=== PATIENT | female | born 1975 | race African-American/Black ===

== ENCOUNTER 2016-10-13 14:58 | Emergency (ER) | payer BC ==
[2016-10-13] MEDS ORDERED: Labetalol IV* 5 MG/ML 20 ML VIAL IV PUSH ONE (16:34)
[2016-10-13 16:44] LABS: Hematocrit 44 % (35-47); Hemoglobin 14.1 g/dl (12.0-16.0); Mean Corpuscular HGB Conc 32 g/dl (31-36); Mean Corpuscular Hemoglobin 27 pg (27-31); Mean Corpuscular Volume 84 fL (80-97); Mean Platelet Volume 9 um3 (7.4-10.4); Red Blood Count 5.21 10^6/ul (4.0-5.4); Red Cell Distribution Width 14 % (10.5-15); White Blood Count 5.7 10^3/ul (3.5-10.8)
[2016-10-13 16:56] LABS: ALT 12 U/L (7-52); AST 17 U/L (13-39); Albumin 4.3 g/dL (3.2-5.2); Alkaline Phosphatase 59 U/L (34-104); Anion Gap 3 mmol/L (2-11); BUN/Creatinine Ratio 10.1 (8-20); Blood Urea Nitrogen 9 mg/dL (6-24); CO2 Carbon Dioxide 29 mmol/L (22-32); Calcium 9.5 mg/dL (8.6-10.3); Chloride 104 mmol/L (101-111); Cholesterol 176 mg/dL; EGFR African American 89.9 (>60); EGFR Non-African American 69.9 (>60); Glucose 87 mg/dL (70-100); HDL Cholesterol 57.8 mg/dL; LDL Cholesterol 103 mg/dL; Sodium 136 mmol/L (133-145); Total Protein 7.3 g/dL (6.4-8.9); Triglycerides 74 mg/dL
[2016-10-13 16:59] LABS: Urine Bilirubin Negative (Negative); Urine Glucose Negative (Negative); Urine Nitrite Negative (Negative)
--- NOTE | 2016-10-13 17:00 | RAD ---
INDICATION: Headaches and visual changes COMPARISON: CTA head and neck November 03, 2015; MRI brain November 03, 2015 TECHNIQUE: Noncontrast axial source images were acquired from the skull base to the vertex. FINDINGS: Ventricles/sulci: The ventricles and cisterns are normal in size and configuration for age. Brain parenchyma: There is no focal parenchymal finding, evidence of intracranial mass, or intracranial mass effect. Intracranial hemorrhage:None. Extra-axial spaces: There are no abnormal extra axial fluid collections or evidence of extra-axial mass. Calvarium: There is no calvarial fracture or other calvarial abnormality. Scalp: There is no evidence of scalp or extracalvarial soft tissue abnormality. Paranasal sinuses/mastoid: The paranasal sinuses and mastoid air cells are clear. Other: None. IMPRESSION: NEGATIVE EXAMINATION
--- NOTE | 2016-10-13 17:14 | RAD ---
INDICATION: Hypertension, palpitations. Headache. COMPARISON: November 04, 2015 CT. TECHNIQUE: Dual energy PA and routine lateral views of the chest were obtained. REPORT: Clear lungs and pleural spaces. Negative for pneumothorax. The heart, pulmonary vasculature, and mediastinal contours are unremarkable. Unremarkable osseous structures and soft tissue contours. IMPRESSION: No evidence for acute intrathoracic disease. Negative exam.
[2016-10-13 17:15] LABS: Benzodiazepine Urine Screen None Detected (None Detect)
[2016-10-13] MEDS ORDERED: Metoclopramide IV* 5 MG/ML 2 ML VIAL IV ONE (17:54)
[2016-10-13] MEDS ORDERED: Ketorolac INJ* 30 MG/ML 1 ML VIAL IV PUSH ONE (17:54)
[2016-10-13] MEDS ORDERED: diPHENhydraMINE IV* 50 MG in NS 0.9% 50 ML* 50 ML IVPB ONE (17:54)
[2016-10-13 18:38] VITALS: BP 122/74
--- NOTE | 2016-10-13 18:45 | ED ---
Prateek Busch Alok, scribed for Danilo Soni MD on 10/13/16 at 1704 . Headache - HPI Summary HPI Summary: 41 y/o female presents to the ED with c/o head pressure and pain for the last 4 days. Pain is localized to the back of the head and is accompanied by vision loss of the left eye on and off. Currently her pain is at a 7 out of 10 in severity. Additionally pt notes left sided CP radiating down left arm yesterday which subsided since. Pt also medically controlled HTN but her BP has been high for the past few days despite medications. Her PCP instructed her to try an extra dose of HTN medication to try and lower BP but it had no affect. Pt has hx of migraines but states these symptoms are not her typical migraines. Pt denies any N/V or neck pain. Pt smokes tobacco and just ate [employer]. - History Of Current Complaint Chief Complaint: EDGeneral Stated Complaint: HIGH BLOOD PRESSURE Time Seen by Provider: 10/13/16 16:21 Hx Obtained From: Patient Hx Last Menstrual Period: just finished it Onset/Duration: Started days ago, Still Present Currently Pain Is: Current Pain Scale(0-10)= - 7 Timing: Constant Character: Throbbing Location of Headache: Occipital Associated Signs And Symptoms: Other (Noted In Comments) - Chest Pain. HTN. - Allergies/Home Medications Allergies/Adverse Reactions: Allergies Allergy/AdvReac Type Severity Reaction Status Date / Time Sulfamethoxazole Allergy Hives Verified 11/03/15 13:46 w/Trimethoprim [From Bactrim] Codeine AdvReac Vomiting Verified 11/03/15 13:46 Hydrocodone [From Vicodin] AdvReac Vomiting Verified 11/03/15 13:46 PMH/Surg Hx/FS Hx/Imm Hx Endocrine/Hematology History: Reports: Hx Thyroid Disease - FIORDALIZA'S Denies: Hx Anticoagulant Therapy, Hx Diabetes Cardiovascular History: Reports: Hx Angina, Hx Hypercholesterolemia, Hx Hypertension - ON MEDICATION FOR, Other Cardiovascular Problems/Disorders - tachycardia, valve flutter Denies: Hx Coronary Artery Disease, Hx Myocardial Infarction, Hx Pacemaker/ ICD, Hx Valvular Heart Disease Respiratory History: Reports: Hx Asthma - exercise induced Denies: Hx Chronic Obstructive Pulmonary Disease (COPD) GI History: Reports: Hx Irritable Bowel - Fiordaliza's Denies: Hx Cirrhosis History: Denies: Hx Renal Disease Sensory History: Denies: Hx Contacts or Glasses, Hx Hearing Aid Opthamlomology History: Denies: Hx Contacts or Glasses Neurological History: Reports: Hx Migraine - 7-8/MONTH- TREATS WITH XANAX, Other Neuro Impairments/Disorders - ACUTE STRESS DISORDER Denies: Hx Dementia, Hx Seizures Psychiatric History: Denies: Hx Panic Disorder, Hx Substance Abuse - Cancer History Cancer Type, 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 Removal of scar tissue from left arm where a Norplant implant was placed. 1991, [place] Yanez [place] [facility] [place]EEP PROCEDURE-[facility] Hx Anesthesia Reactions: Yes - TUBAL-BURNING SENSATION THROUGHOUT BODY AND "WAS OUT" - Immunization History Date of Tetanus Vaccine: UNK Date of Influenza Vaccine: Fall 2011 Infectious Disease History: Denies: Hx Hepatitis, Hx Human Immunodeficiency Virus (HIV), Traveled Outside the [place] in Last 30 Days - Family History Known Family History: Positive: Other - No - Breast CA - Social History Occupation: Employed Full-time Alcohol Use: None Hx Substance Use: No Substance Use Type: Reports: None Hx Tobacco Use: Yes Smoking Status (MU): Light Every Day Tobacco Smoker Amount Used/How Often: 5-10 CIGARETTES PER DAY FOR LAST 6 MONTHS Have You Smoked in the Last Year: Yes Review of Systems Negative: Fever Positive: Blurred Vision Positive: Chest Pain, Other - HTN Negative: Shortness Of Breath Negative: Vomiting, Nausea Negative: Other - Neck Pain Positive: Headache All Other Systems Reviewed And Are Negative: Yes Physical Exam - Summary Physical Exam Summary: VITAL SIGNS: Reviewed. GENERAL: ~Patient is a well developed and nourished female who is lying comfortable in the stretcher. ~Patient is not in any acute respiratory distress. HEAD AND FACE: Normocephalic EYES: PERRLA, EOMI x 2. EARS: Hearing grossly intact. MOUTH: Oropharynx within normal limits. NECK: Supple, trachea is midline, no adenopathy, no JVD, no carotid bruit. CHEST: Symmetric, no tenderness at palpation LUNGS: Clear to auscultation bilaterally. No wheezing or crackles. CVS: Regular rate and rhythm, S1 and S2 present, no murmurs or gallops appreciated. ABDOMEN: Soft, non-tender. Bowel sounds are normal. No abdominal abnormal pulsations. EXTREMITIES: Full ROM in all major joints, no edema, no cyanosis or clubbing. NEURO: Alert and oriented x 3. No acute neurological deficits. Speech is normal and follows commands. SKIN: Dry and warm Triage Information Reviewed: Yes Vital Signs On Initial Exam: Initial Vitals Temp Pulse Resp BP Pulse Ox 97.5 F 79 16 153/93 100 10/13/16 15:03 10/13/16 15:03 10/13/16 15:03 10/13/16 15:03 10/13/16 15:03 Vital Signs Reviewed: Yes - [place] Coma Scale Coma Scale Total: 15 Diagnostics - Vital Signs Vital Signs Temp Pulse Resp BP Pulse Ox 10/13/16 16:33 99 10/13/16 16:23 98.4 F 77 18 148/105 100 10/13/16 16:00 71 99 10/13/16 15:55 67 99 10/13/16 15:03 97.5 F 79 16 153/93 100 - Laboratory Lab Results: Lab Results 10/13/16 10/13/16 Range/Units 16:20 16:20 WBC 5.7 (3.5-10.8) 10^3/ul RBC 5.21 (4.0-5.4) 10^6/ul Hgb 14.1 (12.0-16.0) g/dl Hct 44 (35-47) % MCV 84 (80-97) fL MCH 27 (27-31) pg MCHC 32 (31-36) g/dl RDW 14 (10.5-15) % Plt Count 122 L (150-450) 10^3/ul MPV 9 (7.4-10.4) um3 Neut % (Auto) 64.6 (38-83) % Lymph % (Auto) 28.6 (25-47) % Hardeman % (Auto) 5.2 (1-9) % Eos % (Auto) 1.2 (0-6) % Baso % (Auto) 0.4 (0-2) % Absolute Neuts (auto) 3.7 (1.5-7.7) 10^3/ul Absolute Lymphs (auto) 1.6 (1.0-4.8) 10^3/ul Absolute Monos (auto) 0.3 (0-0.8) 10^3/ul Absolute Eos (auto) 0.1 (0-0.6) 10^3/ul Absolute Basos (auto) 0 (0-0.2) 10^3/ul Absolute Nucleated RBC 0.01 10^3/ul Nucleated RBC % 0.1 INR (Anticoag Therapy) 0.98 (0.89-1.11) Result Diagrams: 10/13/16 16:20 10/13/16 16:20 Lab Statement: Any lab studies that have been ordered have been reviewed, and results considered in the medical decision making process. - Radiology CXR Xray Interpretation: Positive (See Comments) - IMPRESSION: No evidence for acute intrathoracic disease. Negative exam. Radiology Interpretation Completed By: Radiologist - CT Brain CT CT Interpretation: Positive (See Comments) - IMPRESSION: NEGATIVE HEAD EXAM CT Interpretation Completed By: Radiologist - EKG 1631 Cardiac Rate: NL EKG Rhythm: Sinus Rhythm - 70 bpm EKG Interpretation: No ST elevation Headache Course/Dx - Course Course Of Treatment: 41 y/o female presents to the ED with c/o head pressure and pain for the last 4 days. Pain is localized to the back of the head and is accompanied by vision loss of the left eye on and off. Currently her pain is at a 7 out of 10 in severity. Additionally pt notes left sided CP radiating down left arm yesterday which subsided since. Pt also medically controlled HTN but her BP has been high for the past few days despite medications. Her PCP instructed her to try an extra dose of HTN medication to try and lower BP but it had no affect. Pt has hx of migraines but states these symptoms are not her typical migraines. Pt denies any N/V or neck pain. Pt smokes tobacco and just ate [employer]. Assessment/Plan: Blood work wnl. UA shows no UTI. Head CT IMPRESSION: NEGATIVE EXAMINATION. CXR IMPRESSION: No evidence for acute intrathoracic disease. Negative exam. In the ED course initially she was given Labetalol 20 mg IV. Before she was given Labetalol her BP has decreased to 113/69. She continues to have a Headache but she has Hx of migraine headaches. She was given Benadryl , Reglan and Toradol. After the above medications her Headache has resolved. Patient was observed for a couple hours and her symptoms did not return. At believe taking an extra dose of Diltiazem her blood pressure improved. I discussed all the findings and test results with the patient. Patient was instructed to return to the emergency room immediately if any of the symptoms return or worsens. Plan of care was discussed with the patient and understands and agrees. All questions were answered at patient satisfaction. There were no further complaints or concerns. Lung exam before discharge: CTA B/L. Good air exchange. No wheezing or crackles heard. CVS: S1 and S2 present. No murmurs appreciated. Patient is alert and oriented x 3. Patient is hemodynamically stable. Patient will be discharged home with follow up with PCP in the next 2-3 days - Diagnoses Differential Diagnosis/HQI/PQRI: CVA, TIA, Migraine, Sinus Headache, Tension Headache Provider Diagnoses: Headache, Uncontrolled hypertension Discharge - Discharge Plan Condition: Stable Disposition: HOME Patient Education Materials: Hypertension (ED), General Headache (ED) Forms: *Work Release Referrals: Jenny Boston MD [Primary Care Provider] - The documentation as recorded by the Prateek pope Alok accurately reflects the service I personally performed and the decisions made by me, Danilo Soni MD.
== END 2016-10-13 19:02 | disposition home or self-care (01) ==
LOC: ED 14:58
DX: F17.210 Nicotine dependence, cigarettes, uncomplicated (principal); I10 Essential (primary) hypertension; R07.9 Chest pain, unspecified; M79.602 Pain in left arm; H53.8 Other visual disturbances; R51 Headache
CPT/HCPCS: 36415; 70450; 71020; 80053; 80061; 80307; 81003; 83605; 84484; 84702; 85025; 85610; 93005; 96374; 96375; 99284; J1200; J1885

== ENCOUNTER 2016-12-13 08:11 | Emergency (ER) | payer BC, OTHER ==
[2016-12-13 08:20] VITALS: BP 143/87
--- NOTE | 2016-12-13 08:40 | UC ---
Back Pain HPI - HPI Summary HPI Summary: SUDDEN ONSET OF LEFT LOW BACK PAIN 3 WEEKS AGO WILNatalie SHE WAS DOING SOME HEAVY LIFTING AT WORK. HAS BEEN USING OTC IBUPROFEN AND ICY HOT WITH NO RELIEF. EMPLOYERS ADVISED HER TO BE SEEN SINCE SHE IS NOT IMPROVING. SHE CALLED HER PCP WHO REFERRED HER HERE THEY DO NOT TAKE WORKERS COMP. HAS SOME TINGLING IN HER TOES SINCE THE INJURY. - History of Current Complaint Chief Complaint: UCBackPain Stated Complaint: BACK INJURY Time Seen by Provider: 12/13/16 08:32 Hx Obtained From: Patient Hx Last Menstrual Period: none had ablasion Onset/Duration: Sudden Onset, Lasting Weeks, Still Present Timing: Constant Severity Initially: Moderate Severity Currently: Moderate Pain Intensity: 7 Pain Scale Used: 0-10 Numeric Back Pain: Is Discrete @ - LEFT LOW Aggravating: Movement Alleviating: Rest, Position Associated Signs And Symptoms: Positive: Tingling - Allergies/Home Medications Allergies/Adverse Reactions: Allergies Allergy/AdvReac Type Severity Reaction Status Date / Time Sulfamethoxazole Allergy Hives Verified 12/13/16 08:27 w/Trimethoprim [From Bactrim] Codeine AdvReac Vomiting Verified 12/13/16 08:27 Hydrocodone [From Vicodin] AdvReac Vomiting Verified 12/13/16 08:27 Home Medications: Home Medications Cholecalciferol TAB* [Vitamin D TAB*] 3,000 unit PO DAILY 12/13/16 [History Confirmed 12/13/16] Menthol (Topical Analgesic) [Icy Hot Patch] 12/13/16 [History] PMH/Surg Hx/FS Hx/Imm Hx Endocrine History: Thyroid Disease - ZKAIYA'S Cardiovascular History: Hypertension Respiratory History: Asthma Other History Of: Negative For: Anticoagulant Therapy - Surgical History Surgical History: Yes Surgery Procedure, Year, and Place: tubal ligation [place] [place] uterine ablasion. Removal of scar tissue from left arm where a Norplant implant was placed. 1991, Dr Yanez [place] [facility] [place],. [place] PROCEDURE-[facility] - Family History Known Family History: Positive: Hypertension, Other - No - Breast CA Family History: DAD - HEROIN, MOM ALCOHOLIC - Social History Alcohol Use: None Substance Use Type: None Smoking Status (MU): Former Smoker Amount Used/How Often: 5-10 CIGARETTES PER DAY FOR LAST 6 MONTHS Have You Smoked in the Last Year: Yes When Did the Patient Quit Smoking/Using Tobacco: quit November 2016 Household Exposure Type: Cigarettes - Immunization History Most Recent Influenza Vaccination: 2014 Most Recent Tetanus Shot: 2012 Most Recent Pneumonia Vaccination: never Review of Systems Constitutional: Negative Respiratory: Negative Cardiovascular: Negative Gastrointestinal: Negative Musculoskeletal: Arthralgia, Decreased ROM, Myalgia All Other Systems Reviewed And Are Negative: Yes Physical Exam Triage Information Reviewed: Yes Appearance: Well-Appearing, Well-Nourished, Pain Distress - MODERATE. WORSE WHEN SHE MOVES Vital Signs: Initial Vital Signs Temp 98.8 F 12/13/16 08:19 Pulse 82 12/13/16 08:19 Resp 18 12/13/16 08:19 BP 143/87 12/13/16 08:19 Pulse Ox 100 12/13/16 08:19 Vital Signs Reviewed: Yes Eyes: Positive: Conjunctiva Clear ENT: Positive: Hearing grossly normal Neck: Positive: Supple Respiratory: Positive: No respiratory distress, No accessory muscle use Cardiovascular: Positive: Pulses Normal Abdomen Description: Positive: Soft Musculoskeletal: Positive: No Edema, ROM Limited @ - BACK, Other: - GAIT AFFECTED. Neurological: Positive: Alert, Other: - NEG STRAIGHT LEG RAISE Psychological: Positive: Age Appropriate Behavior Skin: Negative: rashes Diagnostics - Radiology LUMBARSACRAL XRAYS Xray Interpretation: No Acute Changes Radiology Interpretation Completed By: Radiologist Back Pain Course/Dx - Differential Dx/Diagnosis Provider Diagnoses: ACUTE LOW BACK STRAIN Discharge - Discharge Plan Condition: Stable Disposition: HOME Prescriptions: Cyclobenzaprine TAB* [Flexeril TAB*] 10 mg PO BID PRN #30 tab PRN Reason: Pain Naproxen [Naproxen EC] 500 mg PO BID PRN #30 tab PRN Reason: Pain predniSONE TAB* [Deltasone TAB*] 40 mg PO DAILY #10 tab Patient Education Materials: Low Back Strain (ED) Forms: *Work Release Referrals: Jenny Boston MD [Primary Care Provider] - If Needed Nery Cordova MD [Medical Doctor] - If Needed Additional Instructions: XRAY UNREMARKABLE TODAY. YOU MAY BENEFIT FROM AN MRI IF YOUR SYMPTOMS DO NOT IMPROVE OVER THE NEXT 1-2 WEEKS. FOLLOW-UP ORTHO OR SPINE CENTER IF NEEDED. BE SURE TO GO THROUGH SLOW RANGE OF MOTION AND STRETCHING EXERCISES DAILY YOU ARE ABLE TO PREVENT STIFFENING UP AND MAKING THE DISCOMFORT WORSE. [facility] [address] [place] [address]
--- NOTE | 2016-12-13 09:15 | RAD ---
INDICATION: Back pain after heavy lifting. COMPARISON: CT abdomen pelvis dated February 05, 2014 TECHNIQUE: 5 views of the lumbar spine were obtained. FINDINGS: The vertebra are in normal alignment. No fracture is seen. Disc spaces appear maintained. . IMPRESSION: No evidence of fracture or subluxation.
== END 2016-12-13 09:44 | disposition home or self-care (01) ==
LOC: UCEAST 08:11
DX: S39.012A Strain of muscle, fascia and tendon of lower back, initial encounter (principal); X50.0XXA Overexertion from strenuous movement or load, initial encounter; Y93.89 Activity, other specified; Y92.69 Other specified industrial and construction area as the place of occurrence of the external cause; Y99.9 Unspecified external cause status; I10 Essential (primary) hypertension; E06.3 Autoimmune thyroiditis; J45.909 Unspecified asthma, uncomplicated; Z87.891 Personal history of nicotine dependence
CPT/HCPCS: 72110; 99212; G0463

== ENCOUNTER 2019-01-30 17:22 | Emergency (ER) | payer BC, OTHER ==
[2019-01-30] MEDS ORDERED: oxyCODONE TAB* 5 MG TAB PO ONE ×2 (17:38→19:47)
[2019-01-30] MEDS ORDERED: Ondansetron ODT TAB* 4 MG SL ONE (17:39)
[2019-01-30] MEDS ORDERED: Ondansetron ODT TAB* 4 MG ONE (17:48)
--- NOTE | 2019-01-30 17:49 | ED ---
Adult Trauma - HPI Summary HPI Summary: The patient is a 43 y/o F presenting to [facility] accompanied by mother with a chief complaint of sudden onset left-sided trauma extending from the trunk to the leg starting [employer] s/p falling down the stairs. She reports that she had started to walk down the stairs after taking a shower, and she slipped on the edge of the first step, causing her to hit her left elbow on the stairs and she continued to slide down the stairs on her back. There is now a swollen lump on her lower back. She was unable to stand up on her own, but she was able to ambulate in the ED. Her left leg also became numb while on her way here. She has not taken anything for pain, but the pain is rated 8/10 in severity. Movement aggravates the pain. Hx of thyroid disease, angina, HLD, HTN ( Lisinopril, Diltiazem), tachycardia, Hashimotos. Former smoker, no EtOH, no substance use. - History of Current Complaint Chief Complaint: EDFall Stated Complaint: FELL DOWN 14 STAIRS PER PT Time Seen by Provider: 01/30/19 17:33 Hx Obtained From: Patient Hx Last Menstrual Period: none had ablasion Mechanism of Injury: Fall - fell down a flight of stairs on her back and left side Ambulatory at the Scene: No - unable to get up by herself Onset of Pain: Immediate Onset Severity: Severe Current Severity: Severe Pain Intensity: 8 Pain Scale Used: 0-10 Numeric Location: Other - left-side of body especially the left elbow and left low back Aggravating Factor(s): Movement Alleviating Factor(s): Nothing Associated Signs & Symptoms: Positive: Numbness/Weakness - in the LLE - Allergy/Home Medications Allergies/Adverse Reactions: Allergies Allergy/AdvReac Type Severity Reaction Status Date / Time codeine Allergy Vomiting Verified 01/30/19 17:24 hydrocodone [From Vicodin] Allergy Vomiting Verified 01/30/19 17:24 sulfamethoxazole AdvReac Hives Verified 01/30/19 17:24 [From Bactrim] trimethoprim [From Bactrim] AdvReac Hives Verified 01/30/19 17:24 Home Medications: Home Medications Folic Acid TAB* [Folvite TAB*] 1 mg PO DAILY 01/30/19 [History Confirmed ] Lisinopril TAB* [Prinivil TAB 5 MG*] 5 mg PO DAILY 01/30/19 [History Confirmed 01/30/19] Pregabalin [Lyrica] 75 mg PO DAILY 01/30/19 [History Confirmed 01/30/19] PMH/Surg Hx/FS Hx/Imm Hx Endocrine/Hematology History: Reports: Hx Thyroid Disease - FIORDALIZA'S Denies: Hx Anticoagulant Therapy, Hx Diabetes Cardiovascular History: Reports: Hx Angina, Hx Hypercholesterolemia, Hx Hypertension, Other Cardiovascular Problems/Disorders - tachycardia, valve flutter Denies: Hx Coronary Artery Disease, Hx Myocardial Infarction, Hx Pacemaker/ ICD, Hx Valvular Heart Disease Respiratory History: Reports: Hx Asthma - exercise induced Denies: Hx Chronic Obstructive Pulmonary Disease (COPD) GI History: Reports: Hx Irritable Bowel - Fiordaliza's Denies: Hx Cirrhosis History: Denies: Hx Renal Disease Sensory History: Denies: Hx Contacts or Glasses, Hx Hearing Aid Opthamlomology History: Denies: Hx Contacts or Glasses Neurological History: Reports: Hx Migraine - 7-8/MONTH- TREATS WITH XANAX, Other Neuro Impairments/Disorders - ACUTE STRESS DISORDER Denies: Hx Dementia, Hx Seizures Psychiatric History: Denies: Hx Panic Disorder, Hx Substance Abuse - Cancer History Cancer Type, 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 Removal of scar tissue from left arm where a Norplant implant was placed. 1991, Dr Yanez at [facility],. LEEP PROCEDURE-[facility] Hx Anesthesia Reactions: Yes - TUBAL-BURNING SENSATION THROUGHOUT BODY AND "WAS OUT" - Immunization History Date of Tetanus Vaccine: UNK Date of Influenza Vaccine: Fall 2011 Immunizations Up to Date: Yes Infectious Disease History: No Infectious Disease History: Denies: Hx Hepatitis, Hx Human Immunodeficiency Virus (HIV), Traveled Outside the [place] in Last 30 Days - Family History Known Family History: Positive: Hypertension, Other - No - Breast CA Family History: DAD - HEROIN, MOM ALCOHOLIC - Social History Alcohol Use: None Hx Substance Use: No Substance Use Type: Reports: None Hx Tobacco Use: Yes Smoking Status (MU): Former Smoker Amount Used/How Often: 5-10 CIGARETTES PER DAY FOR LAST 6 MONTHS Have You Smoked in the Last Year: Yes Review of Systems Positive: Other - pain in low back on left side with swelling, left elbow pain Positive: Numbness - in left leg All Other Systems Reviewed And Are Negative: Yes Physical Exam - Summary Physical Exam Summary: Appearance: Well-appearing, Well-nourished, lying in bed in obvious discomfort Skin: Warm, dry, no obvious rash Eyes: sclera anicteric, no conjunctival pallor ENT: mucous membranes moist, pharynx appears normal, no sign of head injury Neck: Supple, nontender Respiratory: Clear to auscultation, no signs of respiratory distress Cardiovascular: Normal S1, S2. No murmurs. Normal distal pulses in tibial and radial bilaterally. Abdomen: Soft, nontender, normal active bowel sounds present Musculoskeletal: Tenderness on left lower back without any surface sings of injury, Left elbow is normal with FROM and no focal tenderness, Able to move lower extremities without apparent difficulty Neurological: A&Ox3, awake and alert, mentation is normal, speech is fluent and appropriate Psychiatric: affect is normal, does not appear anxious or depressed Triage Information Reviewed: Yes Vital Signs On Initial Exam: Initial Vitals Temp Pulse Resp BP Pulse Ox 98.0 F 106 20 158/109 99 01/30/19 17:24 01/30/19 17:24 01/30/19 17:24 01/30/19 17:24 01/30/19 17:24 Vital Signs Reviewed: Yes Diagnostics - Vital Signs Vital Signs Temp Pulse Resp BP Pulse Ox 01/30/19 17:24 98.0 F 106 20 158/109 99 - Laboratory Lab Statement: Any lab studies that have been ordered have been reviewed, and results considered in the medical decision making process. - Radiology L Elbow XR Radiology Interpretation Completed By: ED Physician Summary of Radiographic Findings: No evidence for fracture. ED physician has reviewed this radiology report. Pending official report. L Hip/Pelvis XR Radiology Interpretation Completed By: ED Physician Summary of Radiographic Findings: No evidence for fracture. ED physician has reviewed this radiology report. Pending official report. Lumbar Spine XR Radiology Interpretation Completed By: Radiologist Summary of Radiographic Findings: No evidence for fracture. ED physician has reviewed this radiology report. Pending official report. Re-Evaluation - Re-Evaluation First Eval Re-Evaluation Time: 19:40 Comment: I discussed results and dishcarge home with the patient. Adult Trauma Course/Dx - Course Course Of Treatment: The patient is a 43 y/o F presenting to [facility] accompanied by mother with a chief complaint of sudden onset left-sided trauma extending from the trunk to the leg starting [employer] s/p falling down the stairs, causing her to sustain pain in the left elbow and left low back where there is a swollen lump, and she had an episode of left leg numbness on her way here. She had difficulty standing on her own, but she had help from her family to ambulate. Upon physical exam, the patient exhibits tenderness on left lower back without any surface sings of injury, left elbow is normal with FROM and no focal tenderness, and she is able to move lower extremities without apparent difficulty. In the ED course, the patient was administered Oxycodone and Zofran. Per ED physician read, L Elbow XR, L Hip/Pelvis XR, and Lumbar Spine XR are negative for fracture, pending official read. The patient will be discharged home with dx of back contusion. She agrees with this plan. - Diagnoses Provider Diagnoses: Contusion of back Discharge - Sign-Out/Discharge Documenting (check all that apply): Patient Departure - Patient will be discharged home. Patient Received Moderate/Deep Sedation with Procedure: No - Discharge Plan Condition: Good Disposition: HOME Prescriptions: Ondansetron ODT TAB* [Zofran 4 MG Odt TAB*] 8 mg PO Q6H PRN #12 tab.odt PRN Reason: Nausea Oxycodone TAB(NF) [Oxycodone HCl 10 MG] 10 mg PO Q6H PRN #12 tab MDD 4 PRN Reason: Pain - Severe Patient Education Materials: Contusion in Adults (ED) Forms: *Work Release Referrals: Yahir Henley MD [Primary Care Provider] - 4 Days (if not improving) - Billing Disposition and Condition Condition: GOOD Disposition: Home - Attestation Statements Document Initiated by Sofy: Yes Documenting Scribe: Mony Eli Provider For Whom Sofy is Documenting (Include Credential): Dr. Pacheco Sharif MD Scribe Attestation: Mony Busch scribed for Dr. Pacheco Sharif MD on 01/31/19 at 1236. Scribe Documentation Reviewed: Yes Provider Attestation: The documentation as recorded by the Mony pope accurately reflects the service I personally performed and the decisions made by me, Dr. Pacheco Sharif MD Status of Sofy Document: Viewed
[2019-01-30 20:16] VITALS: BP 122/78
== END 2019-01-30 20:15 | disposition home or self-care (01) ==
LOC: ED 17:22
DX: S30.0XXA Contusion of lower back and pelvis, initial encounter (principal); W10.9XXA Fall (on) (from) unspecified stairs and steps, initial encounter; Y92.009 Unspecified place in unspecified non-institutional (private) residence as the place of occurrence of the external cause; E07.9 Disorder of thyroid, unspecified; I20.9 Angina pectoris, unspecified; E78.00 Pure hypercholesterolemia, unspecified; I10 Essential (primary) hypertension; J45.909 Unspecified asthma, uncomplicated; Z88.1 Allergy status to other antibiotic agents; Z88.5 Allergy status to narcotic agent; Z88.2 Allergy status to sulfonamides; Z79.899 Other long term (current) drug therapy; Z87.891 Personal history of nicotine dependence
CPT/HCPCS: 72100; 99283; A9270-GY

== ENCOUNTER 2019-08-13 05:43 | Observation (INO) | payer BC ==
[~2019-08-13 05:43] MED LIST: Buffered Lidocaine 1% SYRIN* 1 ML/SYRINGE INTRADERM ONE
[2019-08-13] MEDS ORDERED: Lactated Ringers 1000 ML Bag* 1,000 ML IV SCH ×2 (06:00→10:00)
[2019-08-13] MEDS ORDERED: Famotidine IV* 10 MG/ML 2 ML (20 mg) IV ONE (06:00)
[2019-08-13] MEDS ORDERED: Dexamethasone IV* 4 MG/ML 1 ML (4 MG) IV SLOW PU ONE (06:00)
[2019-08-13] MEDS ORDERED: ceFAZolin 2 GM PREMIX in ORs 2 GM/50 ML BAG ONE (06:23)
[2019-08-13] MEDS ORDERED: Famotidine IV* 10 MG/ML 2 ML (20 mg) ONE (06:23)
[2019-08-13] MEDS ORDERED: Dexamethasone IV* 4 MG/ML 1 ML (4 MG) ONE (06:23)
[2019-08-13] MEDS ORDERED: Buffered Lidocaine 1% SYRIN* 1 ML/SYRINGE INTRADERM ONE (06:55)
[2019-08-13] MEDS ORDERED: Bupivacaine 0.5% W/EPI SDV* 10 ML VIAL INJ ONE (07:11)
[2019-08-13] MEDS ORDERED: Atracurium* 10 MG/ML 10 ML VIAL ONE (07:22)
[2019-08-13] MEDS ORDERED: Midazolam* 1 MG/ML 5 ML VIAL (5 MG) ONE (07:22)
[2019-08-13] MEDS ORDERED: fentaNYL* 50 MCG/ML 5 ML VIAL (250 MCG VIAL) ONE (07:22)
[2019-08-13] MEDS ORDERED: Propofol* 10 MG/ML 20 ML BTL ONE (07:23)
[2019-08-13] MEDS ORDERED: Lidocaine 2% PF * 5 ML VIAL ONE (07:23)
[2019-08-13] MEDS ORDERED: Ondansetron INJ* 2 MG/ML VIAL ONE ×2 (07:23→10:13)
[2019-08-13] MEDS ORDERED: HYDROmorphone INJ1* 1 MG/ML SYRINGE IV PRN (08:02)
[2019-08-13] MEDS ORDERED: Ondansetron INJ* 2 MG/ML VIAL IV PRN ×2 (08:02→09:44)
[2019-08-13] MEDS ORDERED: Scopolamine 1.5 mg* PATCH TRANSDERM PRN (08:02)
[2019-08-13] MEDS ORDERED: DiMENhydriNATE IV* 50 MG/ML VIAL IV PUSH PRN (08:02)
[2019-08-13] MEDS ORDERED: Naloxone* 0.4 MG/ML 1 ML VIAL IV PRN (08:02)
[2019-08-13] MEDS ORDERED: fentaNYL* 50 MCG/ML 2 ML VIAL (100 MCG VIAL) ONE ×2 (09:53→10:13)
[2019-08-13] MEDS ORDERED: Ketorolac INJ* 30 MG/ML 1 ML VIAL ONE (09:54)
[2019-08-13] MEDS: fentaNYL* 50 MCG/ML 2 ML VIAL (100 MCG VIAL) IV PRN ×4 (09:55→10:25)
[2019-08-13] MEDS: Ketorolac INJ* 30 MG/ML 1 ML VIAL IV PRN ×3 (09:55→20:12)
[2019-08-13] MEDS: Acetaminophen TAB* 325 MG PO PRN (12:50)
[2019-08-13] MEDS ORDERED: Lisinopril TAB* 5 MG PO ONE (17:30)
[2019-08-13] MEDS ORDERED: Docusate CAP* 100 MG PO PRN (18:56)
[2019-08-13] MEDS ORDERED: Simethicone TAB* 80 MG TAB.CHEW PO PRN (18:57)
[2019-08-13] MEDS ORDERED: Topiramate TAB(*) 25 MG PO SCH (21:00)
[2019-08-14] MEDS: Ketorolac INJ* 30 MG/ML 1 ML VIAL IV PRN (02:29)
[2019-08-14] MEDS ORDERED: Diltiazem TAB* 30 MG PO SCH (06:00)
[2019-08-14] MEDS ORDERED: Lisinopril TAB* 5 MG PO SCH (06:00)
[2019-08-14] MEDS ORDERED: Levothyroxine TAB* 50 MCG TAB PO SCH (06:00)
[2019-08-14] MEDS ORDERED: Ibuprofen TAB* 600 MG PO PRN (08:14)
[2019-08-14] MEDS: Acetaminophen TAB* 325 MG PO PRN (08:22)
[2019-08-14 08:37] LABS: ABS Eosinophils 0.1 10^3/ul (0-0.6); ABS Monocytes 0.5 10^3/ul (0-0.8); ABS Neutrophils 4.8 10^3/ul (1.5-7.7); Eosinophil % 0.8 %; Hematocrit 39 % (35-47); Hemoglobin 12.9 g/dL (12.0-16.0); Lymphocyte % 27.4 %; Mean Corpuscular HGB Conc 34 g/dL (31-36); Mean Corpuscular Hemoglobin 28 pg (27-31); Mean Corpuscular Volume 84 fL (80-97); Mean Platelet Volume 9.4 fL (7.4-10.4); Platelet Count 111 10^3/uL (150-450); Red Cell Distribution Width 14 % (10-15); White Blood Count 7.3 10^3/uL (3.5-10.8)
[2019-08-14 11:55] VITALS: BP 117/61
--- NOTE | 2019-08-14 12:19 | PN ---
Progress Note - Progress Note Date of Service: 08/14/19 SOAP: Subjective: [Patient is post Laparoscopic supracervical hysterectyomy. She is tolerating a regular diet, voiding, ambulating without difficulty. Pain is well controlled with PO meds.] Objective: [ Vital Signs Temp Pulse Resp BP Pulse Ox 98.1 F 59 14 117/61 100 08/14/19 11:54 08/14/19 11:54 08/14/19 11:54 08/14/19 11:54 08/14/19 11:54 Laboratory Results - last 24 hr 08/14/19 08:11 WBC 7.3 RBC 4.60 Hgb 12.9 Hct 39 MCV 84 MCH 28 MCHC 34 RDW 14 Plt Count 111 L MPV 9.4 Neut % (Auto) 65.0 Lymph % (Auto) 27.4 Oliver % (Auto) 6.6 Eos % (Auto) 0.8 Baso % (Auto) 0.2 Absolute Neuts (auto) 4.8 Absolute Lymphs (auto) 2.0 Absolute Monos (auto) 0.5 Absolute Eos (auto) 0.1 Absolute Basos (auto) 0.0 Absolute Nucleated RBC 0.0 Nucleated RBC % 0.0 Lungs CTA b/l, No CVA tenderness b/l Abdomen, soft, not tender, not distended, normal bowel sounds. Laparoscopic incisions are clean/dry/intact with no discharge, erythema or induration.] Assessment: [POD #1, Patient is stable for discharge today.] Plan: [Discharge home today, instructions reviewed with patient. She has a f/u appt at my office in 1 week.]
--- NOTE | 2019-08-15 11:00 | OP ---
OPERATIVE REPORT: DATE OF OPERATION: 08/13/19 DATE OF : 75 SURGEON: Dr. Monson. [employer] SURGEON: Dr. Jeff. ANESTHESIA: General anesthetic with endotracheal intubation. PRE-OP DIAGNOSES: Chronic pelvic pain, abnormal uterine bleeding, severe dysmenorrhea. POST-OP DIAGNOSES: Chronic pelvic pain, abnormal uterine bleeding, severe dysmenorrhea, pending path ology. OPERATIVE PROCEDURE: Laparoscopic supracervical hysterectomy. ESTIMATED BLOOD LOSS: Less than 5 cc. 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 FLUIDS: She received 1100 cc of IV crystalloid fluid. URINE OUTPUT: 400 cc of clear urine. FINDINGS: The patient was noted laparoscopically to have an enlarged lobulated uterus with normal ov jim and shortened tubal fimbria from prior tubal ligation and normal bladder and bowel and a stenot ic cervix on exam under anesthesia. DESCRIPTION OF PROCEDURE: The patient was taken to the operating room where she was identified. She was placed on operating table where general anesthetic with an endotracheal intubation was obtained without difficulty. She was then placed in the dorsal lithotomy position, prepped and draped in a no rmal sterile fashion. Attention was then brought on to the patient's perineum, the bladder was cathet erized with a Cui catheter and drained of clear urine. A side-view speculum was then inserted into the patient's vagina. The cervix was identified, grasped with a single-toothed tenaculum. An attem pt was made to introduce a ClearView uterine manipulator through the cervix; however, the cervix was noted to be completely stenotic even after attempts at dilation. Therefore, the speculum, the single -tooth tenaculum, as well as the uterine manipulator was removed from the patient's vagina and a spon ge stick was introduced instead. Attention was then brought on to the patient's abdomen where an inf raumbilical skin incision vertically was made with a knife and carried through the underlying layer o f fascia. The fascia was then grasped with Ronit clamps and brought up to the incision and incised vertically with the knife. Entry into the patient's abdomen through the peritoneum was confirmed usi ng a Macrina clamp and S retractors. Through the umbilical incision, I introduced Ganga GelPOINT retr actor. The patient's abdomen was then insufflated with CO2 gas. She was placed in a Trendelenburg p osition. A 5-mm, 30-degree scope was introduced through the umbilical retractor and I surveyed the p atient's pelvic anatomy, review of findings as noted above. Two other trocars were then introduced at the right and left upper quadrant of the abdomen under direct visualization. We then proceeded with our procedure. The uterus was grasped bilaterally at the round ligaments with LigaSure device. The y were coagulated and transected. The proximal portion of the fallopian tube was also grasped with a LigaSure device, coagulated and transected as well as the uteroovarian ligaments bilaterally. A win johnny was then made in the anterior leaf of the broad ligament using blunt dissection. The broad ligam ents were then incised towards inferiorly using blunt and sharp dissection with the LigaSure device a nd cautery. The bladder was then mobilized away from the lower uterine segment using sharp and blunt dissection. Once the bladder was mobilized from the lower uterine segment, the uterine arteries wer e identified bilaterally. At the cervicouterine junction, they were grasped with LigaSure device and they were coagulated and transected. The uterus was then pushed cephalad. A SupraLoop was then int roduced into the patient's abdomen, it was wrapped around cervicouterine junction and the uterus was then amputated from the cervix with the SupraLoop. The SupraLoop was then removed from the patient's abdomen. The cervix was noted to be hemostatic. At this point, the uterus was placed in an Endobag through the umbilical incision. Endobag was then brought up through the umbilical incision, where it was morcellated and removed from the patient's abdomen and sent to Pathology. The Endobag was remove d from the patient's abdomen. A second look with the laparoscope revealed complete hemostatic surgic al pedicles. The patient's pelvis was then irrigated with normal saline. Normal saline was then suc tioned and removed from the patient's pelvis. The pedicles again were then hemostatic. All the lapa roscopic instruments were removed from the patient's abdomen. The umbilical fascia incision was clos ed with 0 Polysorb suture in a running fashion. The skin incisions at the umbilicus and left and rig ht upper quadrant of the patient's abdomen were then closed using 4-0 Monocryl subcuticular stitches. The Cui catheter was removed. Sponge, lap, needle counts, and all the instruments were correct x 2. The sponge stick from the vagina was also removed. The patient was then transferred to [facility] r o area in stable condition. [id number]/[facility] #: [id number]
--- NOTE | 2019-08-18 18:51 | DS ---
DISCHARGE SUMMARY: DATE OF ADMISSION: 08/13/19 DATE OF DISCHARGE: 08/14/19 ADMISSION DIAGNOSES: 1. Chronic pelvic pain. 2. Abnormal uterine bleeding. 3. Severe dysmenorrhea. PROCEDURE ON ADMISSION: Laparoscopic supracervical hysterectomy. DISPOSITION ON DISCHARGE: The patient is discharged to home and her condition was stable. HOSPITAL COURSE: The patient was admitted on 08/13/19 to undergo treatment for chronic pelvic pain, abnormal uterine bleeding, severe dysmenorrhea via a laparoscopic supracervical hysterectomy. Her pr ocedure was uneventful without complications. She was then transferred to recovery room area after s urgery where she recovered well. The patient was then admitted over 24-hour observation to the surgi graeme stay unit where her vital signs remained stable and she was afebrile. On postop day #1, the yudi ent had been tolerating regular diet. She was ambulating and voiding without difficulty and passing flatus. She was also on oral medications for analgesia. She was then discharged home with followup appointment at my office 1 week after her surgery. Please refer to the patient's discharge packet fo r complete explanation of her discharge instructions. [id number]/[facility] #: [id number]
--- NOTE | 2019-08-18 19:08 | DS ---
DISCHARGE SUMMARY: DATE OF ADMISSION: 08/13/19 DATE OF DISCHARGE: 08/14/19 ADMISSION DIAGNOSES: 1. Chronic pelvic pain. 2. Abnormal uterine bleeding. 3. Severe dysmenorrhea. SURGICAL PROCEDURE: Laparoscopic supracervical hysterectomy. CONDITION AT DISCHARGE: Stable and she was discharged to home. HOSPITAL COURSE: The patient was admitted on 08/13/19 for a chronic pelvic pain, abnormal uterine bl eeding, severe dysmenorrhea, treated with a laparoscopic supracervical hysterectomy. The surgery was uneventful. She was transferred to the recovery room area where she recovered well and then was adm itted over 24-hour observation to this surgical stay unit. During her hospitalization, the patient's vital signs remained stable. She was afebrile. On postop day 1, the patient was tolerating a regul ar diet, she was ambulating, voiding without difficulty and pain medications consisted of oral intake medications. She was therefore deemed stable for discharge. She was discharged home. Discharge in structions were reviewed with the patient. Please refer to the patient's discharge packet for full e xplanation of her discharge instructions. [id number]/[facility] #: [id number]
== END 2019-08-14 12:55 | disposition home or self-care (01) ==
LOC: OR 05:43 → SSU 09:44
PROVIDERS: ADMIT Obstetrics & Gynecology; ATTEND Obstetrics & Gynecology
DX: D25.1 Intramural leiomyoma of uterus (principal); R10.2 Pelvic and perineal pain; N85.00 Endometrial hyperplasia, unspecified; N92.0 Excessive and frequent menstruation with regular cycle; N94.5 Secondary dysmenorrhea; E03.9 Hypothyroidism, unspecified; F17.210 Nicotine dependence, cigarettes, uncomplicated; M79.7 Fibromyalgia; J45.909 Unspecified asthma, uncomplicated; I49.9 Cardiac arrhythmia, unspecified; I10 Essential (primary) hypertension; Z88.2 Allergy status to sulfonamides; Z79.899 Other long term (current) drug therapy; Z79.890 Hormone replacement therapy
CPT/HCPCS: 36415; 85025; 88307; 96374; 96375; 96376; A9270-GY; G0378; J0690; J1100; J1885; J2250; J2405; J2704; J3010